=== PATIENT | female | born 1940 | race Caucasian/White ===

== ENCOUNTER 2017-05-03 19:41 | Emergency (ER) | payer MEDICARE, OTHER ==
[2017-05-03] MEDS ORDERED: Sodium Chloride 0.9% 1,000 ML IV ONE (22:07)
--- NOTE | 2017-05-03 22:13 | EDM.PDOC ---
ED HPI GENERAL MEDICAL PROBLEM - General Chief Complaint: Fever Stated Complaint: FEVER, WEAK, BP HIGHER [id number] Time Seen by Provider: 05/03/17 21:50 Source of Information: Reports: Patient History Limitations: Reports: No Limitations - History of Present Illness INITIAL COMMENTS - FREE TEXT/NARRATIVE: Ed with c/o fever, body aches, and nausea today. No vomiting. Fever up to 101 at home. Has not taken anything for fever. Onset: Today Severity: Moderate Associated Symptoms: Reports: Fever/Chills, Headaches, Loss of Appetite, Malaise , Nausea/Vomiting. 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(s) Generalized Pain Score (Numeric/FACES): 2 - Related Data Allergies Allergy/AdvReac Type Severity Reaction Status Date / Time celecoxib [From Celebrex] Allergy Rash Verified 02/19/15 18:20 loratadine Allergy Hives Verified 02/19/15 18:20 [From Claritin-D 12 Hour] pseudoephedrine sulfate Allergy Hives Verified 02/19/15 18:20 [From Claritin-D 12 Hour] simvastatin [From Zocor] Allergy Cannot Verified 02/19/15 18:20 Remember Sulfa (Sulfonamide Allergy Burning Verified 02/19/15 18:20 Antibiotics) triamterene [Triamterene] Allergy Rash Verified 02/19/15 18:20 Home Meds: Home Meds Latanoprost [Xalatan] 2.5 ml OP DAILY 10/22/13 [History] Lisinopril [Lisinopril] 20 mg PO DAILY 10/22/13 [History] Omeprazole 20 mg PO DAILY 05/29/14 [History] Timolol [Betimol 0.5% Ophth Soln] 1 drop EYEBOTH BID 05/29/14 [History] Verapamil [Verelan] 180 mg PO BEDTIME 05/29/14 [History] Brimonidine [Alphagan 0.2% Ophth Soln] 0 ml EYERT BID 05/03/17 [History] Krill/Om-3/DHA/EPA/Phospho/Ast [Krill Oil 1,000 mg Softgel] 1 each PO DAILY [History] Past Medical History HEENT History: Reports: Glaucoma, Impaired Vision Cardiovascular History: Reports: Hypertension Gastrointestinal History: Reports: Diverticulosis, GERD 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: Reports: Endometriosis - Past Surgical History GI Surgical History: Reports: Appendectomy, Cholecystectomy, Colonoscopy Female Surgical History: Reports: Endometrial Ablation Social & Family History - Tobacco Use Smoking Status *Q: Never Smoker Second Hand Smoke Exposure: No - Alcohol Use Days Per Week of Alcohol Use: 0 - Recreational Drug Use Recreational Drug Use: No Recreational Drug Type: ED ROS GENERAL - Review of Systems Review Of Systems: See Below Constitutional: Reports: Fever, Malaise, Decreased Appetite HEENT: Reports: No Symptoms, Glasses Respiratory: Reports: No Symptoms Cardiovascular: Reports: No Symptoms GI/Abdominal: Reports: Distension. Denies: Diarrhea, Difficulty Swallowing, Vomiting : Reports: Frequency Musculoskeletal: Reports: Joint Pain Skin: Reports: Rash (atopic dermatitis, no change) ED EXAM, GENERAL - Physical Exam Exam: See Below Exam Limited By: No Limitations General Appearance: Alert, No Apparent Distress Eye Exam: Bilateral Eye: EOMI, PERRL Ears: Normal External Exam, Normal TMs Nose: Normal Inspection Throat/Mouth: Normal Inspection Head: Atraumatic, Normocephalic Neck: Normal Inspection, Full Range of Motion. No: Lymphadenopathy (L), Lymphadenopathy (R) Respiratory/Chest: No Respiratory Distress, Lungs Clear, Normal Breath Sounds Cardiovascular: Normal Peripheral Pulses, Regular Rate, Rhythm GI/Abdominal: Soft, Abnormal Bowel Sounds (hyperactive). No: Guarding Back Exam: Normal Inspection, Full Range of Motion. No: CVA Tenderness (L), CVA Tenderness (R) Extremities: Normal Inspection, Normal Range of Motion Neurological: Alert, Oriented, Normal Cognition Psychiatric: Normal Affect, Normal Mood Skin Exam: Warm, Dry, Intact Course - Vital Signs Last Recorded V/S: Last Vital Signs Temp 98.5 F 05/03/17 21:21 Pulse 79 05/03/17 21:21 Resp 18 05/03/17 21:21 BP 157/77 H 05/03/17 21:21 Pulse Ox 97 05/03/17 21:21 - Orders/Labs/Meds Orders: Active Orders 24 hr Category Date Time Status EKG 12 Lead [EKG Documentation Completion] [RC] STAT Care 05/03/17 21:44 Active EKG 12 Lead [EKG Documentation Completion] [RC] URGENT Care 05/03/17 22:24 Inactive CULTURE STREP A CONFIRMATION [RM] Stat Lab 05/03/17 22:00 Results STREP SCRN A RAPID W CULT CONF [] Stat Lab 05/03/17 22:00 Results Sodium Chloride 0.9% [Normal Saline] 1,000 ml Med 05/03/17 22:07 Active IV .BOLUS Medication Orders Sodium Chloride (Normal Saline) 1,000 mls @ 250 mls/hr IV .BOLUS ONE Stop: 05/04/17 02:06 Last Admin: 05/03/17 22:22 Dose: 250 mls/hr Labs: Laboratory Tests 05/03/17 05/03/17 05/03/17 Range/Units 22:12 22:12 22:12 WBC 11.4 H (5.0-10.0) 10^3/uL RBC 4.25 (4.2-5.4) 10^6/uL Hgb 13.3 (12.0-16.0) g/dL Hct 38.9 (37.0-47.0) % MCV 91.5 (80-100) fL MCH 31.3 (27.0-34.0) pg MCHC 34.2 (33.0-35.0) g/dL Plt Count 235 (150-450) 10^3/uL Neut % (Auto) 76.0 H (42.2-75.2) % Lymph % (Auto) 10.2 L (20.5-50.1) % Cecil % (Auto) 13.3 H (2-8) % Eos % (Auto) 0.3 L (1.0-3.0) % Baso % (Auto) 0.2 (0.0-1.0) % Sodium 132 L (135-145) mmol/L Potassium 3.4 L (3.6-5.0) mmol/L Chloride 96 L (101-111) mmol/L Carbon Dioxide 23.0 (21.0-31.0) mmol/L Anion Gap 16.4 BUN 9 (7-18) mg/dL Creatinine 0.8 (0.6-1.3) mg/dL Est Cr Clr Drug Dosing 60.35 mL/min Estimated GFR (MDRD) > 60 BUN/Creatinine Ratio 11.25 Glucose 126 H (74-105) mg/dL Lactic Acid 1.0 (0.5-2.2) mmol/L Calcium 8.9 (8.4-10.2) mg/dl Total Bilirubin 0.8 (0.2-1.0) mg/dL AST 16 (10-42) IU/L ALT 16 (10-60) IU/L Alkaline Phosphatase 69 (42-121) IU/L Total Protein 7.0 (6.7-8.2) g/dl Albumin 4.1 (3.2-5.5) g/dl Globulin 2.9 Albumin/Globulin Ratio 1.41 Amylase 40 (28-100) U/L Lipase 21 L (22-51) U/L Urine Color (YELLOW) Urine Appearance (CLEAR) Urine pH (5.0-9.0) Ur Specific [place] (1.005-1.030) Urine Protein (NEGATIVE) Urine Glucose (UA) (NEGATIVE) Urine Ketones (NEGATIVE) Urine Occult Blood (NEGATIVE) Urine Nitrite (NEGATIVE) Urine Bilirubin (NEGATIVE) Urine Urobilinogen (0.2-1.0) mg/dL Ur Leukocyte Esterase (NEGATIVE) Urine RBC /HPF Urine WBC (0-5/HPF) /HPF Ur Epithelial Cells /HPF Urine Bacteria (0-FEW/HPF) /HPF Urine Mucus /LPF 05/03/17 Range/Units 22:15 WBC (5.0-10.0) 10^3/uL RBC (4.2-5.4) 10^6/uL Hgb (12.0-16.0) g/dL Hct (37.0-47.0) % MCV (80-100) fL MCH (27.0-34.0) pg MCHC (33.0-35.0) g/dL Plt Count (150-450) 10^3/uL Neut % (Auto) (42.2-75.2) % Lymph % (Auto) (20.5-50.1) % Cecil % (Auto) (2-8) % Eos % (Auto) (1.0-3.0) % Baso % (Auto) (0.0-1.0) % Sodium (135-145) mmol/L Potassium (3.6-5.0) mmol/L Chloride (101-111) mmol/L Carbon Dioxide (21.0-31.0) mmol/L Anion Gap BUN (7-18) mg/dL Creatinine (0.6-1.3) mg/dL Est Cr Clr Drug Dosing mL/min Estimated GFR (MDRD) BUN/Creatinine Ratio Glucose (74-105) mg/dL Lactic Acid (0.5-2.2) mmol/L Calcium (8.4-10.2) mg/dl Total Bilirubin (0.2-1.0) mg/dL AST (10-42) IU/L ALT (10-60) IU/L Alkaline Phosphatase (42-121) IU/L Total Protein (6.7-8.2) g/dl Albumin (3.2-5.5) g/dl Globulin Albumin/Globulin Ratio Amylase (28-100) U/L Lipase (22-51) U/L Urine Color Yellow (YELLOW) Urine Appearance Clear (CLEAR) Urine pH 7.0 (5.0-9.0) Ur Specific [place] 1.015 (1.005-1.030) Urine Protein Negative (NEGATIVE) Urine Glucose (UA) Negative (NEGATIVE) Urine Ketones 40 H (NEGATIVE) Urine Occult Blood Negative (NEGATIVE) Urine Nitrite Negative (NEGATIVE) Urine Bilirubin Negative (NEGATIVE) Urine Urobilinogen 0.2 (0.2-1.0) mg/dL Ur Leukocyte Esterase Trace H (NEGATIVE) Urine RBC 0-5 /HPF Urine WBC 0-5 (0-5/HPF) /HPF Ur Epithelial Cells Few /HPF Urine Bacteria Occasional (0-FEW/HPF) /HPF Urine Mucus Few H /LPF Meds: Medications Generic Name Dose Route Start Last Admin Trade Name Freq PRN Reason Stop Dose Admin Sodium Chloride 1,000 mls @ 250 mls/hr 05/03/17 22:07 05/03/17 22:22 Normal Saline IV 05/04/17 02:06 250 mls/hr .BOLUS ONE Administration Discontinued Medications Generic Name Dose Route Start Last Admin Trade Name Freq PRN Reason Stop Dose Admin Acetaminophen 650 mg 05/03/17 23:14 Tylenol PO 05/03/17 23:15 NOW ONE - Radiology Interpretation Free Text/Narrative:: CXR suspiscious for RML pneumonia Abdomen 2 view unremarkable, no sign of obstruction - Re-Assessments/Exams Free Text/Narrative Re-Assessment/Exam: 05/03/17 23:15Resting, c/o headache. Denies abdominal pain or nausea. Departure - Departure Time of Disposition: 23:24 Disposition: Home, Self-Care 01 Condition: Fair Clinical Impression: Pneumonia Qualifiers: Pneumonia type: due to unspecified organism Laterality: right Lung location: middle lobe of lung Qualified Code(s): J18.1 - Lobar pneumonia, unspecified organism - Discharge Information Instructions: Community-Acquired Pneumonia, Adult, [id number] Forms: ED Department Discharge Additional Instructions: light bland diet follow up in clinic for recheck on sunday Recheck chest xray within 2 month period urgent follow up if symptoms worsen tylenol 650mg every 4 hours as needed for discomfort/fever zofran ODT one every 6 hours as needed for nausea #2 Azithromycin 500mg tonight then 250mg daily for 4 days - My Orders Last 24 Hours: My Active Orders 05/03/17 21:44 EKG 12 Lead [EKG Documentation Completion] [RC] STAT 05/03/17 22:00 CULTURE STREP A CONFIRMATION [RM] Stat STREP SCRN A RAPID W CULT CONF [] Stat 05/03/17 22:07 Sodium Chloride 0.9% [Normal Saline] 1,000 ml IV .BOLUS 05/03/17 22:24 EKG 12 Lead [EKG Documentation Completion] [RC] URGENT - Assessment/Plan Last 24 Hours: My Active Orders 05/03/17 21:44 EKG 12 Lead [EKG Documentation Completion] [RC] STAT 05/03/17 22:00 CULTURE STREP A CONFIRMATION [RM] Stat STREP SCRN A RAPID W CULT CONF [RM] Stat 05/03/17 22:07 Sodium Chloride 0.9% [Normal Saline] 1,000 ml IV .BOLUS 05/03/17 22:24 EKG 12 Lead [EKG Documentation Completion] [RC] URGENT
[2017-05-03 22:41] LABS: CHLORIDE,CL 96 mmol/L (101-111); SODIUM,NA 132 mmol/L (135-145)
[2017-05-03] MEDS ORDERED: Acetaminophen 325 MG Tab PO ONE (23:14)
[2017-05-03] MEDS ORDERED: Azithromycin 250 MG Tab PO ONE (23:36)
[2017-05-03] MEDS ORDERED: Azithromycin 250 MG Tab ONE (23:36)
[2017-05-03] MEDS ORDERED: Ondansetron 4 MG Tab.DIS PO ONE (23:36)
[2017-05-03] MEDS ORDERED: Ondansetron 4 MG Tab.DIS ONE (23:36)
[2017-05-03 23:43] VITALS: BP 168/78
--- NOTE | 2017-05-07 09:38 | EKG ---
05/03/2017 - MARISELA ACKERMAN - EKG is sinus rhythm with a rate of 77. Normal DE interval. There is a left axis deviation. There are nonspecific ST-T wave changes on the septal leads. There are no signs of acute myocardial injury. [facility] /[id number]
== END 2017-05-03 23:48 | disposition home or self-care (01) ==
LOC: DL.ED 19:41
DX: J18.9 Pneumonia, unspecified organism (principal); H54.7 Unspecified visual loss; I10 Essential (primary) hypertension; K21.9 Gastro-esophageal reflux disease without esophagitis; Z98.890 Other specified postprocedural states; Z88.2 Allergy status to sulfonamides; Z88.8 Allergy status to other drugs, medicaments and biological substances; Z79.899 Other long term (current) drug therapy; Z90.49 Acquired absence of other specified parts of digestive tract
CPT/HCPCS: 36415; 71020; 74020; 80053; 81001; 82150; 83605; 83690; 85025; 87081; 87430; 87804; 93005; 93010; 96360; 99284; A9270; J7030

== ENCOUNTER 2018-12-07 14:25 | Emergency (ER) | payer MEDICARE, OTHER ==
[2018-12-07 15:21] VITALS: BP 192/84
[2018-12-07 15:47] LABS: ANION GAP 15.6; CHLORIDE,CL 101 mmol/L (101-111); SODIUM,NA 136 mmol/L (135-145)
--- NOTE | 2018-12-07 16:08 | EDM.PDOC ---
Scribed by Мария Parra 12/07/18 [id number] for Magaly Sheth NP ED HPI GENERAL MEDICAL PROBLEM - General Chief Complaint: Chest Pain Stated Complaint: FLU/BRONCHITIS Time Seen by Provider: 12/07/18 14:30 Source of Information: Reports: Patient, RN, RN Notes Reviewed History Limitations: Reports: No Limitations - History of Present Illness INITIAL COMMENTS - FREE TEXT/NARRATIVE: Patient presented to ER with constant chest tightness for past 2 days. She reports bilateral breast tenderness. No known alleviators/aggravators. Pain is 3 /10 in severity. She has had diarrhea x2 nonbloody-episode today since Sunday. She denies fever, cough, rigors, nausea, vomiting, and shortness of breath. The shortness of breath is with exertion. No leg swelling. No breast erythema, edema or discharge from breast. Onset: Gradual Duration: Getting Worse Severity: Moderate Improves with: Reports: None Worsens with: Reports: None Associated Symptoms: Reports: No Other Symptoms Bilateral Chest Pain Score (Numeric/FACES): 4 - Related Data Allergies Allergy/AdvReac Type Severity Reaction Status Date / Time celecoxib [From Celebrex] Allergy Rash Verified 12/07/18 14:32 loratadine Allergy Hives Verified 12/07/18 14:32 [From Claritin-D 12 Hour] pseudoephedrine sulfate Allergy Hives Verified 12/07/18 14:32 [From Claritin-D 12 Hour] simvastatin [From Zocor] Allergy Cannot Verified 12/07/18 14:32 Remember Sulfa (Sulfonamide Allergy Burning Verified 12/07/18 14:32 Antibiotics) triamterene [Triamterene] Allergy Rash Verified 12/07/18 14:32 Home Meds: Home Meds Latanoprost [Xalatan] 1 drop EYEBOTH BEDTIME 10/22/13 [History] Lisinopril 20 mg PO DAILY 10/22/13 [History] Timolol [Betimol 0.5% Ophth Soln] 1 drop EYEBOTH BID 05/29/14 [History] Verapamil [Verelan] 180 mg PO BEDTIME 05/29/14 [History] Brimonidine [Alphagan 0.2% Ophth Soln] 1 drop EYERT BID 05/03/17 [History] Krill/Om-3/DHA/EPA/Phospho/Ast [Krill Oil 1,000 mg Softgel] 1 each PO DAILY [History] Gluc 2KCl/Chondr/Ajit Hy/Hy Ac [Glucosamine & Chondroitin Cap] 1 cap PO BID [History] Lutein/Minerals/Vit A,C & E [Ocuvite] 1 tab PO DAILY 12/07/18 [History] Ranitidine [Zantac] 150 mg PO BID 12/07/18 [History] Past Medical History HEENT History: Reports: Glaucoma, Impaired Vision Cardiovascular History: Reports: Hypertension Gastrointestinal History: Reports: Diverticulosis, GERD 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 ED EXAM, GENERAL - Physical Exam Exam: See Below Exam Limited By: No Limitations General Appearance: Alert, WD/WN, No Apparent Distress Eye Exam: Bilateral Eye: EOMI, Normal Inspection, PERRL Ears: Normal External Exam, Normal Canal, Hearing Grossly Normal, Normal TMs Nose: Normal Inspection, Normal Mucosa, No Blood Throat/Mouth: Normal Inspection, Normal Lips, Normal Teeth, Normal Gums, Normal Oropharynx, Normal Voice, No Airway Compromise Head: Atraumatic, Normocephalic Neck: Normal Inspection, Supple, Non-Tender, Full Range of Motion Respiratory/Chest: No Respiratory Distress, Lungs Clear, Normal Breath Sounds, No Accessory Muscle Use, Chest Non-Tender Cardiovascular: Normal Peripheral Pulses, Regular Rate, Rhythm, No Edema, No Gallop, No JVD, No Murmur, No Rub GI/Abdominal: Normal Bowel Sounds, Soft, Non-Tender, No Organomegaly, No Distention, No Abnormal Bruit, No Mass (Female) Exam: Deferred Rectal (Female) Exam: Deferred Course - Vital Signs Last Recorded V/S: Last Vital Signs Temp 98.2 F 12/07/18 15:20 Pulse 62 12/07/18 15:20 Resp 18 12/07/18 15:20 BP 192/84 H 12/07/18 15:20 Pulse Ox 98 12/07/18 15:20 - Orders/Labs/Meds Orders: Active Orders 24 hr Category Date Time Status EKG Documentation Completion [RC] STAT Care 12/07/18 14:58 Active Chest 1V Frontal [CR] Stat Exams 12/07/18 14:58 Taken Labs: Laboratory Tests 12/07/18 12/07/18 12/07/18 Range/Units 15:09 15:17 15:17 WBC 9.5 (5.0-10.0) 10^3/uL RBC 4.77 (4.2-5.4) 10^6/uL Hgb 14.8 D (12.0-16.0) g/dL Hct 43.7 (37.0-47.0) % MCV 91.6 (80-100) fL MCH 31.0 (27.0-34.0) pg MCHC 33.9 (33.0-35.0) g/dL Plt Count 324 D (150-450) 10^3/uL Neut % (Auto) 62.4 (42.2-75.2) % Lymph % (Auto) 25.2 (20.5-50.1) % [place] % (Auto) 9.0 H (2-8) % Eos % (Auto) 3.1 H (1.0-3.0) % Baso % (Auto) 0.3 (0.0-1.0) % Sodium 136 (135-145) mmol/L Potassium 3.6 (3.6-5.0) mmol/L Chloride 101 (101-111) mmol/L Carbon Dioxide 23.0 (21.0-31.0) mmol/L Anion Gap 15.6 BUN 9 (7-18) mg/dL Creatinine 0.8 (0.6-1.3) mg/dL Est Cr Clr Drug Dosing 58.46 mL/min Estimated GFR (MDRD) > 60 BUN/Creatinine Ratio 11.25 Glucose 106 H (74-105) mg/dL Calcium 9.0 (8.4-10.2) mg/dl Total Bilirubin 0.5 (0.2-1.0) mg/dL AST 27 (10-42) IU/L ALT 21 (10-60) IU/L Alkaline Phosphatase 78 (42-121) IU/L Troponin I < 0.02 (0.00-0.02) ng/ml Total Protein 7.3 (6.7-8.2) g/dl Albumin 4.3 (3.2-5.5) g/dl Globulin 3.0 Albumin/Globulin Ratio 1.43 Urine Color Yellow (YELLOW) Urine Appearance Clear (CLEAR) Urine pH 7.0 (5.0-9.0) Ur Specific [place] 1.010 (1.005-1.030) Urine Protein Negative (NEGATIVE) Urine Glucose (UA) Negative (NEGATIVE) Urine Ketones Negative (NEGATIVE) Urine Occult Blood Negative (NEGATIVE) Urine Nitrite Negative (NEGATIVE) Urine Bilirubin Negative (NEGATIVE) Urine Urobilinogen 0.2 (0.2-1.0) mg/dL Ur Leukocyte Esterase Negative (NEGATIVE) - Radiology Interpretation Free Text/Narrative:: chest xray: FINDINGS: Lungs: Unremarkable. No consolidation. Pleural space: Unremarkable. No pleural effusion. No pneumothorax. Heart/Mediastinum: Unremarkable. No cardiomegaly. Bones/joints: Unremarkable. IMPRESSION: No acute findings. Thank you for allowing us to participate in the care of your patient. Dictated and Authenticated by: Son Rubio MD 12/07/2018 3:39 PM Central Time ([place] & [place]) See rad report - Re-Assessments/Exams Free Text/Narrative Re-Assessment/Exam: 12/07/18 16:06 I saw and evaluated the patient. Discussed with resident and agree with resident s findings and plan as documented in the residents note. Departure - Departure Time of Disposition: 16:07 Disposition: Home, Self-Care 01 Condition: Fair Clinical Impression: Nonspecific chest pain - Discharge Information *PRESCRIPTION DRUG MONITORING PROGRAM REVIEWED*: No *COPY OF PRESCRIPTION DRUG MONITORING REPORT IN PATIENT JOSÉ MIGUEL: No Instructions: Nonspecific Chest Pain, [id number], Chest Wall Pain, Easy-to- Read Forms: ED Department Discharge Additional Instructions: Continue to take medications as prescribed Return to the ER with any worsening symptoms Follow up with your primary care facility May use Tylenol as directed for pain - My Orders Last 24 Hours: My Active Orders 12/07/18 14:58 EKG Documentation Completion [RC] STAT Chest 1V Frontal [CR] Stat - Assessment/Plan Last 24 Hours: My Active Orders 12/07/18 14:58 EKG Documentation Completion [RC] STAT Chest 1V Frontal [CR] Stat I have read and agree with the documentation that has been completed regarding this visit. By signing this record, I attest that the documentation was completed in my physical presence and is an accurate record of the encounter.
== END 2018-12-07 16:17 | disposition home or self-care (01) ==
LOC: DL.ED 14:25
DX: R07.9 Chest pain, unspecified (principal); I10 Essential (primary) hypertension; K21.9 Gastro-esophageal reflux disease without esophagitis; Z88.2 Allergy status to sulfonamides; Z79.899 Other long term (current) drug therapy; Z88.8 Allergy status to other drugs, medicaments and biological substances; Z88.1 Allergy status to other antibiotic agents
CPT/HCPCS: 36415; 71045; 80053; 81003; 84484; 85025; 87804; 93005; 99285-25

== ENCOUNTER 2022-03-05 19:28 | Emergency (ER) | payer MEDICARE, OTHER ==
[2022-03-05 19:39] VITALS: PULSE 97
[2022-03-05 20:46] LABS: ANION GAP 13.8 mEq/L (7-13)
[2022-03-05] MEDS ORDERED: ceFAZolin 1 GM Vial IM ONE (21:57)
[2022-03-05] MEDS ORDERED: Water For Injection, Sterile 10 ML ONE (22:03)
[2022-03-05 22:16] VITALS: BP 156/86
== END 2022-03-06 00:55 ==
LOC: DL.ED 19:28
DX: L03.115 Cellulitis of right lower limb (principal); R79.89 Other specified abnormal findings of blood chemistry; I10 Essential (primary) hypertension; Z79.899 Other long term (current) drug therapy
CPT/HCPCS: 36415; 80053; 83605; 85025; 85379; 87040; 96372; 99284; J0690